=== PATIENT | female | born 1970 | race Two or more races ===

== ENCOUNTER 2018-02-20 02:40 | Emergency (ER) | payer SELFPAY ==
[~2018-02-20] VITALS: Ht 157.5 cm; Wt 68.0 kg
[2018-02-20] MEDS ORDERED: ACETAMINOPHEN 325MG TABLET PO STA (06:04)
[2018-02-20] MEDS ORDERED: ONDANSETRON 4MG ODT PO ONE (06:15)
[2018-02-20] MEDS ORDERED: ASPIRIN 81MG TABLET PO ONE (06:15)
[2018-02-20 06:42] LABS: BASOPHILS % 0.5 % (0.0-2.0); EOSINOPHILS % 1.2 % (0.0-5.0); HEMATOCRIT. 30.9 % (36.0-48.0); HEMOGLOBIN. 10.3 g/dL (12.0-16.0); LYMPHOCYTES % 19.3 % (20.0-50.0); MEAN CORPUSCULAR HEMOGLOBIN 28.4 pg (28.0-32.0); MEAN CORPUSCULAR VOLUME 85.1 fL (81.0-99.0); MEAN PLATELET VOLUME 9.3 fl (7.4-10.4); MONOCYTES % 8.3 % (2.0-8.0); NEUTROPHILS % 70.7 % (40.0-76.0); PLATELET 271 x1000/uL (130-400); RED BLOOD CELL COUNT 3.64 mill/uL (4.2-5.4); RED CELL DISTRIBUTION WIDTH 13.9 % (11.6-14.6)
[2018-02-20 06:47] LABS: CHLORIDE 109 mEq/L (98-107)
[2018-02-20 11:00] VITALS: BP 104/44
== END 2018-02-20 14:09 | disposition home or self-care (01) ==
LOC: ER 02:40
DX: R07.89 Other chest pain (principal); F41.9 Anxiety disorder, unspecified; R11.0 Nausea; F17.200 Nicotine dependence, unspecified, uncomplicated; Z90.49 Acquired absence of other specified parts of digestive tract
CPT/HCPCS: 36415; 71045; 80053; 81025; 83690; 83880; 84484; 85025; 93005; 99284; Q0162